=== PATIENT | female | born 1950 | race Caucasian/White ===

== ENCOUNTER 2017-11-11 10:39 | Outpatient (CLI) | payer OTHER ==
[~2017-11-11 10:39] MED LIST: NABUMETONE500 MG PO; PERCOCET 5/3251 TAB PO
== END 2017-11-11 10:44 | disposition home or self-care (01) ==
LOC: SONOGRAMA 10:39 → MAMO-SONO 11:15
DX: M25.511 Pain in right shoulder (principal)

== ENCOUNTER 2020-05-04 10:01 | Emergency (ER) | payer OTHER ==
[~2020-05-04] VITALS: Ht 162.6 cm; Wt 64.9 kg
[2020-05-04] MEDS ORDERED: LANTUS SOL100 UNIT/1 SQ (10:26)
[2020-05-04] MEDS ORDERED: JANUVIA25 MG PO (10:26)
[2020-05-04] MEDS ORDERED: JARDIANCE25 MG PO (10:27)
[2020-05-04] MEDS ORDERED: COZAAR25 MG PO (10:27)
[2020-05-04] MEDS ORDERED: NEURONTIN300 MG PO (10:28)
[2020-05-04] MEDS ORDERED: BUSPIRONE HCL5 GM MC (10:28)
== END 2020-05-04 15:10 | disposition home or self-care (01) ==
LOC: ER 10:01
DX: S60.222A Contusion of left hand, initial encounter (principal); S90.01XA Contusion of right ankle, initial encounter; S80.02XA Contusion of left knee, initial encounter; S80.01XA Contusion of right knee, initial encounter; W18.39XA Other fall on same level, initial encounter; Y93.89 Activity, other specified; Y92.59 Other trade areas as the place of occurrence of the external cause; Y99.8 Other external cause status

== ENCOUNTER 2020-10-21 11:33 | Emergency (ER) | payer OTHER ==
[~2020-10-21] VITALS: Ht 162.6 cm; Wt 63.5 kg
[~2020-10-21 11:33] MED LIST changes: +BUSPIRONE HCL5 GM MC; +COZAAR25 MG PO; +JANUVIA25 MG PO; +JARDIANCE25 MG PO; +LANTUS SOL100 UNIT/1 SQ; +NEURONTIN300 MG PO
[2020-10-21] MEDS ORDERED: TRULICITY1.5 MG/0.5 SQ (12:21)
[2020-10-21] MEDS ORDERED: LIPITOR40 MG PO (12:21)
[2020-10-21] MEDS ORDERED: NEURONTIN300 MG PO (12:22)
[2020-10-21] MEDS ORDERED: ZYRTEC10 M3 PO (19:48)
[2020-10-21] MEDS ORDERED: MUCINEX D ER 11 EACH PO (19:48)
[2020-10-21] MEDS ORDERED: GILTUSS TR TAB1 EACH PO (19:53)
== END 2020-10-21 19:41 | disposition home or self-care (01) ==
LOC: ER 11:33
DX: J06.9 Acute upper respiratory infection, unspecified (principal); E11.65 Type 2 diabetes mellitus with hyperglycemia; Z03.818 Encounter for observation for suspected exposure to other biological agents ruled out

== ENCOUNTER 2021-02-20 08:05 | Outpatient (CLI) | payer OTHER ==
[~2021-02-20 08:05] MED LIST changes: +GILTUSS TR TAB1 EACH PO; +LIPITOR40 MG PO; +MUCINEX D ER 11 EACH PO; +TRULICITY1.5 MG/0.5 SQ; +ZYRTEC10 M3 PO
== END 2021-02-20 08:14 | disposition home or self-care (01) ==
LOC: TOM 08:05
PROVIDERS: ATTEND Internal Medicine Gastroenterology
DX: K57.32 Diverticulitis of large intestine without perforation or abscess without bleeding (principal); K92.1 Melena

== ENCOUNTER 2021-07-28 09:30 | Outpatient (CLI) | payer OTHER | END 2021-07-28 09:36 | disposition home or self-care (01) | LOC: MAMO-SONO 09:30 | DX: R92.1 Mammographic calcification found on diagnostic imaging of breast (principal); Z12.31 Encounter for screening mammogram for malignant neoplasm of breast; N64.59 Other signs and symptoms in breast ==

== ENCOUNTER 2021-08-06 01:21 | Inpatient (IN) | payer OTHER ==
[~2021-08-06] VITALS: Ht 162.6 cm; Wt 64.9 kg
[2021-08-06] MEDS ORDERED: LANTUS SOL100 UNIT/1 (01:35)
[2021-08-06] MEDS ORDERED: HUMALOG MI100 UNIT/2 (01:35)
[2021-08-06] MEDS ORDERED: METFORMIN HCL1000 M2 (01:35)
--- NOTE | 2021-08-06 02:04 | NUR ---
SE RECIBE PTE ALERTA Y ORIENTADA POR KAMILLE EN AMBULANCIA. PTE REFIERE MELISA SUFRIDO CAIDA DESDE ANICETO SILLA EN EL NOGOCIO SUSO'S EN AV. JOSHUA, A LAS 11:00PM APROXIMADAMENTE. PTE INDICA PRESENTAR DOLOR EN CADERA Y BRAZO DERECHO.
--- NOTE | 2021-08-06 02:08 | NUR ---
PTE EVALUADA POR EL DR LOWELL FRAGA ORDE[place] EL [place]. MS S DWAINE ORIENTA SOBRE EL TX ORDENADO, LO CUAL REFIERE ENTENDER Y ADMINISTRA MEDICAMENTO TOI ORDEN MEDICA Y SIGUIENDO MEDIDAS ASEPTICAS. DARBY X NOTFICADOS A PERSONAL DE TURNO.
--- NOTE | 2021-08-06 07:46 | NUR ---
SE RECIBE PTE FEMENINA DE 70 YRS ALERTA CONCIENTE Y TRANQUILA EN ALLAN CON BARANDAS ELEVADA. PTE CONSULTADA CON EL NEIDA CANDELARIA QUIEN ESTA NOTIFICADO. PTE CON IVF'S PATENTE Y OTIS DE EDEMA. SE MANTIENE BAJO OBSERVACION POR CAMBIOS.
[2021-08-09] MEDS ORDERED: XARELTO10 MG PO (12:54)
== END 2021-08-09 16:22 | DRG 482 ==
LOC: ER 01:21 → SURG 09:33 → SEC-K 09:33 → SURG 16:21
PROVIDERS: ADMIT Orthopaedic Surgery; ATTEND Orthopaedic Surgery
PROC: 0SH904Z Insertion of Internal Fixation Device into Right Hip Joint, Open Approach (ICD-10-PCS; principal; 2021-08-08 07:00)
DX: S72.034A Nondisplaced midcervical fracture of right femur, initial encounter for closed fracture (principal); W13.3XXA Fall through floor, initial encounter; Y93.89 Activity, other specified; Y92.511 Restaurant or cafe as the place of occurrence of the external cause; Y99.8 Other external cause status; E11.65 Type 2 diabetes mellitus with hyperglycemia; Z79.4 Long term (current) use of insulin; Z20.822 Contact with and (suspected) exposure to COVID-19

== ENCOUNTER 2021-09-03 11:10 | Outpatient (CLI) | payer OTHER ==
[~2021-09-03 11:10] MED LIST changes: +HUMALOG MI100 UNIT/2; +LANTUS SOL100 UNIT/1; +METFORMIN HCL1000 M2; +XARELTO10 MG PO
== END 2021-09-03 11:26 | disposition home or self-care (01) ==
LOC: RAD 11:10
PROVIDERS: ATTEND Orthopaedic Surgery
DX: M25.551 Pain in right hip (principal)

== ENCOUNTER 2021-12-11 09:28 | Outpatient (CLI) | payer OTHER | END 2021-12-11 09:33 | disposition home or self-care (01) | LOC: RAD 09:28 | PROVIDERS: ATTEND Orthopaedic Surgery | DX: M25.551 Pain in right hip (principal) ==

== ENCOUNTER 2021-12-29 08:58 | Outpatient (CLI) | payer OTHER | END 2021-12-29 08:59 | disposition home or self-care (01) | LOC: LAB 08:58 | PROVIDERS: ATTEND Orthopaedic Surgery | DX: E56.1 Deficiency of vitamin K (principal); E21.3 Hyperparathyroidism, unspecified; E88.9 Metabolic disorder, unspecified; M81.8 Other osteoporosis without current pathological fracture ==

== ENCOUNTER 2022-02-12 09:59 | Outpatient (CLI) | payer OTHER | END 2022-02-12 10:04 | disposition home or self-care (01) | LOC: RAD 09:59 | PROVIDERS: ATTEND Orthopaedic Surgery | DX: S72.011D Unspecified intracapsular fracture of right femur, subsequent encounter for closed fracture with routine healing (principal); J01.90 Acute sinusitis, unspecified; R51.9 Headache, unspecified ==

== ENCOUNTER 2022-03-19 10:50 | Outpatient (CLI) | payer OTHER | END 2022-03-19 10:53 | disposition home or self-care (01) | LOC: RAD 10:50 | PROVIDERS: ATTEND Orthopaedic Surgery | DX: M54.50 Low back pain, unspecified (principal) ==

== ENCOUNTER 2022-08-03 16:41 | Inpatient (IN) | payer OTHER ==
[~2022-08-03] VITALS: Ht 152.4 cm; Wt 59.0 kg
[~2022-08-03 16:41] MED LIST changes: +ACETAMINOPHEN650 M2 PO; +AZITHROMYCIN250 MG PO; +BUDESONIDE0.5 MG/21 IH; +COZAAR25 MG; +ECOTRIN81 MG; +FENOFIBRATE50 MG; +INTESTINEX680 M1 PO; +JANUVIA25 MG; +LEVALBUTER0.63 MG/3 IH; +MUCINEX DM ER1 EACH PO; +PEPCID20 MG PO
--- NOTE | 2022-08-03 17:44 | NUR ---
SE RECIBE PACIENTE ALERTA Y ORIENTADA X3 QUIEN REFIERE PRESENTA DOLOR DE CUERPO,TOS CON FLEMA,CONGESTION Y MAREOS. SE MONITOREAN LOS SV PTE SATURANDO 94%.
--- NOTE | 2022-08-03 18:30 | NUR ---
SE LE ORIENTA A PACIENTE SOBRE LAS ORDENES MEDICAS, REFIERE ENTEDER LAS MISMAS. SE CANALIZA Y SE LE COLOCA S/L, SE LE KASEY LAS MUETRAS, SE LE ADMINISTRAN LOS MEDICAMENTOS Y SE LE REALIZA CT CHEST TOI LAS ORDENES MEDICAS.
[2022-08-04] MEDS ORDERED: JARDIANCE25 MG (10:04)
[2022-08-04] MEDS ORDERED: ATORVASTATIN CA10 MG (10:04)
[2022-08-04] MEDS ORDERED: BIOTIN1 MG (10:05)
[2022-08-04] MEDS ORDERED: RISEDRONATE SO150 MG (10:05)
[2022-08-04] MEDS ORDERED: VITAMIN B-121000 MC2 (10:05)
[2022-08-04] MEDS ORDERED: CENTRUM SILVER1 EAC3 (10:05)
[2022-08-04] MEDS ORDERED: VOLTAREN ARTHRI20 GM (10:05)
[2022-08-04] MEDS ORDERED: VITAMIN C250 MG (10:05)
[2022-08-04] MEDS ORDERED: MONTELUKAST SOD10 MG (10:05)
== END 2022-08-10 15:04 | disposition home or self-care (01) | DRG 195 ==
LOC: ER 16:41 → MEDI 21:51
PROVIDERS: ADMIT Internal Medicine; ATTEND Internal Medicine
PROC: BW24ZZZ Computerized Tomography (CT Scan) of Chest and Abdomen (ICD-10-PCS; principal; 2022-08-03)
DX: J18.9 Pneumonia, unspecified organism (principal); H10.89 Other conjunctivitis; N93.8 Other specified abnormal uterine and vaginal bleeding; I10 Essential (primary) hypertension; Z79.4 Long term (current) use of insulin; E11.65 Type 2 diabetes mellitus with hyperglycemia; E78.5 Hyperlipidemia, unspecified

== ENCOUNTER 2022-11-11 10:35 | Emergency (ER) | payer OTHER ==
[~2022-11-11] VITALS: Ht 162.6 cm; Wt 62.6 kg
[~2022-11-11 10:35] MED LIST changes: +ATORVASTATIN CA10 MG; +BIOTIN1 MG; +CENTRUM SILVER1 EAC3; +JARDIANCE25 MG; +MONTELUKAST SOD10 MG; +RISEDRONATE SO150 MG; +VITAMIN B-121000 MC2; +VITAMIN C250 MG; +VOLTAREN ARTHRI20 GM
[2022-11-11] MEDS ORDERED: KETO10TA2 PO (14:11)
[2022-11-11] MEDS ORDERED: NORFLEX100MG PO (14:11)
== END 2022-11-11 14:21 | disposition home or self-care (01) ==
LOC: ER 10:35
DX: M54.50 Low back pain, unspecified (principal); M25.552 Pain in left hip; Z88.0 Allergy status to penicillin

== ENCOUNTER 2022-12-30 19:12 | Emergency (ER) | payer OTHER ==
[~2022-12-30] VITALS: Ht 165.1 cm; Wt 90.7 kg
[~2022-12-30 19:12] MED LIST changes: +KETO10TA2 PO; +NORFLEX100MG PO
== END 2022-12-30 21:41 | disposition home or self-care (01) ==
LOC: ER 19:12
DX: T14.90XA Injury, unspecified, initial encounter (principal); W01.0XXA Fall on same level from slipping, tripping and stumbling without subsequent striking against object, initial encounter; Y93.89 Activity, other specified; Y92.63 Factory as the place of occurrence of the external cause; I10 Essential (primary) hypertension; Z88.0 Allergy status to penicillin